=== PATIENT | female | born 1950 | race Caucasian/White ===

== ENCOUNTER 2016-10-22 08:08 | Day surgery (SDC) | payer MEDICAID ==
[~2016-10-22] VITALS: Ht 152.4 cm; Wt 46.3 kg
[2016-10-22] MEDS ORDERED: MEPERIDINE HCL/PF 100 MG/ML AMP ONE (08:42)
[2016-10-22] MEDS ORDERED: SIMETHICONE 40 MG/0.6 ML ML ONE (08:44)
[2016-10-22] MEDS: MIDAZOLAM HCL 5 MG/5 ML VIAL ONE ×2 (10:51→10:58)
[2016-10-22 11:15] VITALS: BP 106/73; PULSE 73; RESP 18
== END 2016-10-22 12:15 | disposition home or self-care (01) ==
LOC: EDSEX 08:08 → SDS 08:08
PROVIDERS: ATTEND Internal Medicine Gastroenterology
DX: K52.9 Noninfective gastroenteritis and colitis, unspecified (principal); K57.30 Diverticulosis of large intestine without perforation or abscess without bleeding; K64.8 Other hemorrhoids
CPT/HCPCS: 45380; 88305; J2175; J2250; J7030